=== PATIENT | female | born 1935 | race Caucasian/White ===

== ENCOUNTER 2021-04-12 18:38 | Inpatient (IN) | payer MEDICARE ==
[2021-04-12 21:40] LABS: #Basophils 0.1 thou/uL (0.0-0.2); #Eosinphils 0.1 thou/uL (0.0-0.7); #Lymphocytes 1.6 thou/uL (1.20-3.40); #Monocytes 1.2 thou/uL (0.11-0.59); #Neutrophils 10.8 thou/uL (1.40-6.50); %Basophils 0.6 % (0.0-1.0); %Eosinophils 0.6 % (0.0-10.0); %Lymphocytes 11.6 % (21.0-51.0); %Monocytes 8.5 % (0.0-10.0); %Neutrophils 78.8 % (42.0-75.0); Hemoglobin 9.6 g/dL (12.0-16.0); Mean Corpuscular HGB CONC 33.8 g/dL (32.0-36.0); Mean Corpuscular Hemoglobin 33.9 pg (27.0-31.0); Mean Platelet Volume 7.8 fL (7.4-10.4); Platelet Count 284 thou/uL (130-400); RBC Distribution Width 13.6 % (11.5-14.5); Red Blood Cell (RBC) Count 2.85 mill/uL (4.20-5.40); White Blood Cell (WBC) Count 13.8 thou/uL (4.8-10.8)
[2021-04-12] MEDS ORDERED: Acetaminophen 500 MG TAB ONE (22:19)
[2021-04-12 22:53] LABS: Bilirubin Negative (Negative); Blood, Urine Negative (Negative); Glucose, Urine (Dipstick) Negative (Negative); Ketone, Urine Negative (Negative); Leukocyte Negative (Negative); Nitrite Positive (Negative); Protein, Urine (Dipstick) Negative (Neg-Trace); Urobilinogen 0.2 mg/dL (Less than 2); pH, Urine 5.5 (5.0-9.0)
[2021-04-12 23:00] LABS: RBC/HPF 0-3 HPF (0-3); Squamous Epithelial 0-3 HPF (0-3); WBC/HPF 0-3 HPF (0-3)
[2021-04-12 23:02] LABS: Clarity Hazy (Clear)
[2021-04-12 23:11] LABS: Bacteria/HPF 3+ HPF (None Seen)
[2021-04-13 00:23] LABS: Lactic Acid 3.5 mmol/L (0.5-2.2)
[2021-04-13 00:30] VITALS: BMI 24.6
[2021-04-13] MEDS ORDERED: Ondansetron ODT 4 MG TAB PO PRN (04:44)
[2021-04-13] MEDS ORDERED: Dextrose 5% in Water 1,000 ML IV PRN (04:44)
[2021-04-13] MEDS ORDERED: Ondansetron PF 4 MG/2 ML Vial IVP PRN (04:44)
[2021-04-13] MEDS ORDERED: Acetaminophen 325 MG TAB PO PRN (04:44)
[2021-04-13] MEDS ORDERED: HumaLOG 300 UNITS/3 ML VIAL SC PRN ×2 (04:44)
[2021-04-13] MEDS ORDERED: Dextrose 50% Abboject 50 ML SYRINGE SLOW IVP PRN (04:44)
[2021-04-13] MEDS ORDERED: Pantoprazole 40 MG VIAL IVP SCH (05:00)
[2021-04-13] MEDS ORDERED: Sodium Chloride 0.9% (PF) 10 ML VIAL FS PRN (05:00)
[2021-04-13 05:42] LABS: #Basophils 0.1 thou/uL (0.0-0.2); #Eosinphils 0.2 thou/uL (0.0-0.7); #Lymphocytes 1.7 thou/uL (1.20-3.40); #Monocytes 1.3 thou/uL (0.11-0.59); #Neutrophils 8.6 thou/uL (1.40-6.50); %Basophils 0.6 % (0.0-1.0); %Eosinophils 1.8 % (0.0-10.0); %Lymphocytes 14.3 % (21.0-51.0); %Monocytes 10.8 % (0.0-10.0); %Neutrophils 72.5 % (42.0-75.0); Hemoglobin 8.9 g/dL (12.0-16.0); Mean Corpuscular HGB CONC 32.7 g/dL (32.0-36.0); Mean Corpuscular Hemoglobin 32.7 pg (27.0-31.0); Mean Platelet Volume 8.3 fL (7.4-10.4); Platelet Count 261 thou/uL (130-400); RBC Distribution Width 13.7 % (11.5-14.5); White Blood Cell (WBC) Count 11.8 thou/uL (4.8-10.8)
[2021-04-13 05:57] LABS: Anion Gap 14 mmol/L (10-20); BUN (Urea Nitrogen) 39 mg/dL (9.8-20.1); Calc. Creatinine Clearance 28 mL/min (70-130); Carbon Dioxide 24 mmol/L (23-31); Chloride 103 mmol/L (98-107); Glucose 125 mg/dL (83-110); Potassium 5.2 mmol/L (3.5-5.1); Sodium 136 mmol/L (136-145)
[2021-04-13] MEDS: Sodium Chloride 0.9% 1,000 ML IV SCH ×2 (05:59→19:28)
[2021-04-13] MEDS: Aripiprazole 2 MG TAB PO SCH ×2 (08:47→19:54)
[2021-04-13] MEDS: Venlafaxine HCl XR 150 MG CAP PO SCH (08:47)
[2021-04-13] MEDS: cefTRIAXone\\ROCEPHIN 2 GM in Sodium Chloride 0.9% 100 ML IVPB SCH (08:48)
[2021-04-13 08:56] LABS: Hemoglobin 9.3 g/dL (12.0-16.0)
[2021-04-13] MEDS ORDERED: Enoxaparin Sodium 30 MG/0.3 ML SYRINGE SC SCH (09:00)
[2021-04-13 09:09] LABS: Iron 49 ug/dL (50-170); Iron Binding Capacity, Total 295 mcg/dL (265-497)
[2021-04-13] MEDS ORDERED: Alogliptin 25 MG TAB PO SCH (09:45)
[2021-04-13] MEDS ORDERED: metFORMIN 500 MG TAB PO SCH (09:45)
[2021-04-13 11:14] LABS: SARS-CoV-2 PCR by NAA Not Detected (NotDetected)
[2021-04-13 15:42] LABS: Hemoglobin 8.4 g/dL (12.0-16.0)
[2021-04-13] MEDS: Pantoprazole 40 MG VIAL IVP SCH (20:12)
[2021-04-14 05:48] LABS: #Eosinphils 0.1 thou/uL (0.0-0.7); #Lymphocytes 1.3 thou/uL (1.20-3.40); #Neutrophils 6.3 thou/uL (1.40-6.50); %Basophils 0.6 % (0.0-1.0); %Eosinophils 1.3 % (0.0-10.0); %Monocytes 11.7 % (0.0-10.0); %Neutrophils 71.4 % (42.0-75.0); Hemoglobin 8.3 g/dL (12.0-16.0); Mean Corpuscular HGB CONC 32.9 g/dL (32.0-36.0); Mean Corpuscular Hemoglobin 33.1 pg (27.0-31.0); Mean Platelet Volume 7.9 fL (7.4-10.4); Platelet Count 236 thou/uL (130-400); RBC Distribution Width 13.7 % (11.5-14.5); Red Blood Cell (RBC) Count 2.51 mill/uL (4.20-5.40); White Blood Cell (WBC) Count 8.8 thou/uL (4.8-10.8)
[2021-04-14 06:16] LABS: Anion Gap 12 mmol/L (10-20); BUN (Urea Nitrogen) 25 mg/dL (9.8-20.1); Calc. Creatinine Clearance 36 mL/min (70-130); Calcium 8.6 mg/dL (7.8-10.44); Carbon Dioxide 23 mmol/L (23-31); Chloride 106 mmol/L (98-107); Glucose 105 mg/dL (83-110); Iron 25 ug/dL (50-170); Potassium 4.8 mmol/L (3.5-5.1); Sodium 136 mmol/L (136-145)
[2021-04-14 07:48] VITALS: TEMP 98.3
[2021-04-14] MEDS ORDERED: metFORMIN 500 MG TAB PO SCH (08:00)
[2021-04-14] MEDS ORDERED: Alogliptin 25 MG TAB PO SCH (09:00)
[2021-04-14] MEDS ORDERED: Ketamine 50 MG/ML (10ML VIAL) ONE (09:11)
[2021-04-14] MEDS ORDERED: PROPOFOL 200 MG/20 ML VIAL ONE (09:20)
[2021-04-14] MEDS: Sodium Chloride 0.9% 1,000 ML IV SCH (09:39)
[2021-04-14] MEDS: Aripiprazole 2 MG TAB PO SCH (11:01)
[2021-04-14] MEDS: Venlafaxine HCl XR 150 MG CAP PO SCH (11:02)
[2021-04-14] MEDS: Pantoprazole 40 MG VIAL IVP SCH (11:02)
[2021-04-14] MEDS: cefTRIAXone\\ROCEPHIN 2 GM in Sodium Chloride 0.9% 100 ML IVPB SCH (11:06)
[2021-04-14 12:17] VITALS: BP 152/68
== END 2021-04-14 15:20 | disposition home or self-care (01) | DRG 378 ==
LOC: ERS 18:38 → SURG A 22:48
PROVIDERS: ADMIT Student in an Organized Health Care Education/Training Program; ATTEND Internal Medicine
PROC: 0DB98ZX Excision of Duodenum, Via Natural or Artificial Opening Endoscopic, Diagnostic (ICD-10-PCS; principal; 2021-04-14)
PROC: 0DB78ZX Excision of Stomach, Pylorus, Via Natural or Artificial Opening Endoscopic, Diagnostic (ICD-10-PCS; 2021-04-14)
DX: K29.81 Duodenitis with bleeding (principal); E87.2 Acidosis; K26.0 Acute duodenal ulcer with hemorrhage; Z20.822 Contact with and (suspected) exposure to COVID-19; M19.90 Unspecified osteoarthritis, unspecified site; I10 Essential (primary) hypertension; E11.9 Type 2 diabetes mellitus without complications; J44.9 Chronic obstructive pulmonary disease, unspecified; F17.210 Nicotine dependence, cigarettes, uncomplicated; I25.10 Atherosclerotic heart disease of native coronary artery without angina pectoris; D50.9 Iron deficiency anemia, unspecified; T39.395A Adverse effect of other nonsteroidal anti-inflammatory drugs [NSAID], initial encounter; Z96.641 Presence of right artificial hip joint; Z96.612 Presence of left artificial shoulder joint; Z95.1 Presence of aortocoronary bypass graft; I25.2 Old myocardial infarction; Z88.7 Allergy status to serum and vaccine; Z79.899 Other long term (current) drug therapy; Z99.81 Dependence on supplemental oxygen
CPT/HCPCS: 36415; 36416; 71045; 80048; 81003; 81015; 82728; 83540; 83550; 83605; 85025; 88305; C9113; J0696; J2704; J3490; U0003; U0005